=== PATIENT | male | born 1945 | race Caucasian/White ===

== ENCOUNTER 2021-11-21 18:26 | Inpatient (IN) | payer OTHER, MEDICAID ==
[~2021-11-21] VITALS: Ht 162.6 cm; Wt 67.6 kg
[2021-11-21 18:34] VITALS: BP_SYST 125
[2021-11-21] MEDS ORDERED: KETAMINE 30 MG/3 ML SYRINGE IVP ONE (19:00)
[2021-11-21] MEDS ORDERED: iohexoL 350 mgI/mL, 100 ML INFUS..BTL IV ONE (19:09)
[2021-11-21 19:14] LABS: BASOPHILS % (AUTO) 0.5 % (0.0-2.0); EOSINOPHILS % (AUTO) 0.1 % (0.0-4.0); HEMATOCRIT 34.5 % (36-54); HEMOGLOBIN 12.2 g/dL (14.0-18.0); LYMPHOCYTES # (AUTO) 0.8 K/uL (1.0-5.5); LYMPHOCYTES % (AUTO) 9.7 % (20.5-51.5); MEAN CORPUSCULAR HEMOGLOBIN 32 pg (27-31); MEAN CORPUSCULAR HGB CONC 35 % (32-36); MEAN CORPUSCULAR VOLUME 91 fL (79.0-98.0); MONOCYTES % (AUTO) 23.8 % (1.7-9.3); NEUTROPHILS # (AUTO) 5.5 K/uL (1.8-7.7); NEUTROPHILS % (AUTO) 65.9 % (40.0-70.0); PLATELET COUNT (AUTO) 229 K/uL (130-430); WHITE BLOOD COUNT (AUTO) 8.3 K/uL (4.8-10.8)
[2021-11-21 19:18] LABS: ANION GAP 9 (5-15); CHLORIDE 98 mmol/L (98-107); CREATININE 2.39 mg/dL (0.55-1.30); GLUCOSE 224 mg/dL (70-99); POTASSIUM 4.5 mmol/L (3.5-5.1); SODIUM SERUM 132 mmol/L (136-145); UREA NITROGEN, BLOOD 39 mg/dL (8-21)
[2021-11-21 19:19] LABS: PROTHROMBIN TIME 10.1 SECS (9.5-12.5)
[2021-11-21 19:23] LABS: CALCIUM 8.3 mg/dL (8.4-11.0)
[2021-11-21 19:28] LABS: ALANINE AMINOTRANSFERASE 41 U/L (12-78); ASPARTATE AMINOTRANSFERASE 55 U/L (10-37); TOTAL BILIRUBIN 0.3 mg/dL (0.0-1.0)
[2021-11-21] MEDS ORDERED: ONDANSETRON HCL 4 MG/2 ML VIAL IVP PRN (22:45)
[2021-11-21] MEDS ORDERED: TAMS-11 PO (23:47)
[2021-11-21] MEDS ORDERED: NEU300 PO (23:48)
[2021-11-21] MEDS ORDERED: NOR10 PO (23:48)
[2021-11-21] MEDS ORDERED: LEVO250T43 PO (23:49)
[2021-11-21] MEDS ORDERED: LISI20TA30 PO (23:52)
[2021-11-21] MEDS ORDERED: [UNRECOGNIZED DRUG - OTHER] OP (23:54)
[2021-11-21] MEDS ORDERED: OFLO5DRO6 EACH EYE (23:56)
[2021-11-22 06:23] LABS: BASOPHILS % (AUTO) 0.4 % (0.0-2.0); EOSINOPHILS % (AUTO) 0.1 % (0.0-4.0); HEMATOCRIT 35.5 % (36-54); HEMOGLOBIN 12.7 g/dL (14.0-18.0); LYMPHOCYTES # (AUTO) 0.8 K/uL (1.0-5.5); LYMPHOCYTES % (AUTO) 13.5 % (20.5-51.5); MEAN CORPUSCULAR HEMOGLOBIN 32 pg (27-31); MEAN CORPUSCULAR HGB CONC 36 % (32-36); MEAN CORPUSCULAR VOLUME 90 fL (79.0-98.0); MONOCYTES # (AUTO) 1.2 K/uL (0.0-1.0); MONOCYTES % (AUTO) 19.7 % (1.7-9.3); NEUTROPHILS # (AUTO) 4.1 K/uL (1.8-7.7); NEUTROPHILS % (AUTO) 66.3 % (40.0-70.0); PLATELET COUNT (AUTO) 205 K/uL (130-430); RED BLOOD CELL COUNT(AUTO) 3.92 MIL/uL (4.2-6.2); RED CELL DISTRIBUTION WIDTH 14.1 % (9.0-15.0); WHITE BLOOD COUNT (AUTO) 6.1 K/uL (4.8-10.8)
[2021-11-22 06:56] LABS: ALANINE AMINOTRANSFERASE 43 U/L (12-78); ANION GAP 11 (5-15); ASPARTATE AMINOTRANSFERASE 53 U/L (10-37); CALCIUM 7.6 mg/dL (8.4-11.0); CHLORIDE 101 mmol/L (98-107); CREATININE 2.03 mg/dL (0.55-1.30); GLUCOSE 145 mg/dL (70-99); POTASSIUM 4.1 mmol/L (3.5-5.1); SODIUM SERUM 135 mmol/L (136-145); THYROID STIMULATING HORMONE 0.43 uIu/mL (0.36-3.74); TOTAL BILIRUBIN 0.4 mg/dL (0.0-1.0); UREA NITROGEN, BLOOD 38 mg/dL (8-21)
[2021-11-22 08:05] VITALS: BP_SYST 150
[2021-11-22 08:49] LABS: CHOLESTEROL 112 mg/dL (<200); HDL CHOLESTEROL 31 mg/dL (>45); LDL CHOLESTEROL 69 mg/dL (<100); TRIGLYCERIDES 77 mg/dL (30-150)
[2021-11-22] MEDS: cefTRIAXone 1 GM IVPB PREMIX 50 ML IV SCH (09:15)
[2021-11-22 12:15] VITALS: BP_SYST 142
[2021-11-22 16:15] VITALS: BP_SYST 181
[2021-11-22] MEDS ORDERED: DORZOLAMIDE 2% OPHTHALMIC SOLN 5ML OP ONE (18:15)
[2021-11-22] MEDS ORDERED: OFLOXACIN 0.3% OPHTHALMIC DROPS 5 ML EACH EYE ONE (18:15)
[2021-11-22] MEDS: TAMSULOSIN HCL 0.4 MG CAP PO ONE ×2 (18:56→19:10)
[2021-11-22] MEDS: GABAPENTIN 300 MG CAPSULE PO ONE ×2 (18:56→19:10)
[2021-11-22] MEDS: amLODIPine BESYLATE 10 MG TABLET PO ONE ×2 (18:56→19:10)
[2021-11-22 20:40] VITALS: BP_SYST 159
[2021-11-22] MEDS: OFLOXACIN 0.3% OPHTHALMIC DROPS 5 ML EACH EYE SCH (21:00)
[2021-11-22] MEDS ORDERED: hydrALAZINE HCL 20 MG/ML VIAL IVP PRN (21:45)
[2021-11-23 03:00] VITALS: BP_SYST 154
[2021-11-23 07:06] LABS: FOLATE (FOLIC ACID) 14.1 ng/mL (>3.0)
[2021-11-23 08:00] VITALS: BP_SYST 146
[2021-11-23] MEDS: TAMSULOSIN HCL 0.4 MG CAP PO SCH (08:46)
[2021-11-23] MEDS: DORZOLAMIDE 2% OPHTHALMIC SOLN 5ML OP SCH (08:47)
[2021-11-23] MEDS: amLODIPine BESYLATE 10 MG TABLET PO SCH (08:47)
[2021-11-23] MEDS: cefTRIAXone 1 GM IVPB PREMIX 50 ML IV SCH (08:47)
[2021-11-23] MEDS: OFLOXACIN 0.3% OPHTHALMIC DROPS 5 ML EACH EYE SCH ×4 (08:53→22:09)
[2021-11-23] MEDS ORDERED: GABAPENTIN 300 MG CAPSULE PO SCH (09:00)
[2021-11-23] MEDS: NACL 0.9% 1,000 ML IV SCH (11:39)
[2021-11-23 11:40] VITALS: BP_SYST 151
[2021-11-23 15:41] VITALS: BP_SYST 104
[2021-11-23 20:33] VITALS: BP_SYST 129
[2021-11-24 00:31] VITALS: BP_SYST 123
[2021-11-24 06:23] LABS: BASOPHILS % (AUTO) 0.4 % (0.0-2.0); EOSINOPHILS % (AUTO) 0.4 % (0.0-4.0); HEMATOCRIT 35.1 % (36-54); HEMOGLOBIN 12.6 g/dL (14.0-18.0); LYMPHOCYTES # (AUTO) 0.9 K/uL (1.0-5.5); LYMPHOCYTES % (AUTO) 17.4 % (20.5-51.5); MEAN CORPUSCULAR HEMOGLOBIN 32 pg (27-31); MEAN CORPUSCULAR HGB CONC 36 % (32-36); MEAN CORPUSCULAR VOLUME 89 fL (79.0-98.0); MONOCYTES # (AUTO) 0.5 K/uL (0.0-1.0); NEUTROPHILS # (AUTO) 3.8 K/uL (1.8-7.7); NEUTROPHILS % (AUTO) 72.8 % (40.0-70.0); PLATELET COUNT (AUTO) 192 K/uL (130-430); RED BLOOD CELL COUNT(AUTO) 3.95 MIL/uL (4.2-6.2); RED CELL DISTRIBUTION WIDTH 13.9 % (9.0-15.0); WHITE BLOOD COUNT (AUTO) 5.1 K/uL (4.8-10.8)
[2021-11-24 06:43] LABS: ALANINE AMINOTRANSFERASE 51 U/L (12-78); ALBUMIN 2.8 g/dL (3.4-4.8); ANION GAP 6 (5-15); ASPARTATE AMINOTRANSFERASE 56 U/L (10-37); CALCIUM 8.2 mg/dL (8.4-11.0); CHLORIDE 100 mmol/L (98-107); CREATININE 1.53 mg/dL (0.55-1.30); GLUCOSE 187 mg/dL (70-99); POTASSIUM 4.1 mmol/L (3.5-5.1); SODIUM SERUM 134 mmol/L (136-145); TOTAL BILIRUBIN 0.3 mg/dL (0.0-1.0); UREA NITROGEN, BLOOD 32 mg/dL (8-21)
[2021-11-24 08:00] VITALS: BP_SYST 113
[2021-11-24] MEDS: TAMSULOSIN HCL 0.4 MG CAP PO SCH (08:29)
[2021-11-24] MEDS: amLODIPine BESYLATE 10 MG TABLET PO SCH (08:29)
[2021-11-24] MEDS: cefTRIAXone 1 GM IVPB PREMIX 50 ML IV SCH (08:30)
[2021-11-24] MEDS: OFLOXACIN 0.3% OPHTHALMIC DROPS 5 ML EACH EYE SCH ×4 (08:30→21:50)
[2021-11-24] MEDS: DORZOLAMIDE 2% OPHTHALMIC SOLN 5ML OP SCH (08:30)
[2021-11-24] MEDS: NACL 0.9% 1,000 ML IV SCH (08:30)
[2021-11-24] MEDS ORDERED: ENOXAPARIN SODIUM 40 MG/0.4 ML SYRINGE SUBCUT ONE (11:45)
[2021-11-24] MEDS ORDERED: CHOLECALCIFEROL (VITAMIN D3) 5,000 UNIT TABLET PO ONE (11:45)
[2021-11-24 12:25] VITALS: BP_SYST 125
[2021-11-24] MEDS ORDERED: PANTOPRAZOLE SODIUM 40 MG TAB PO ONE (14:15)
[2021-11-24] MEDS ORDERED: ASPIRIN 81 MG TABLET(ECOTRIN) PO ONE (14:15)
[2021-11-24 16:23] VITALS: BP_SYST 125
[2021-11-24 20:03] VITALS: BP_SYST 157
[2021-11-24] MEDS: ASCORBIC ACID 500 MG TABLET PO SCH (21:50)
[2021-11-25] VITALS: BP_SYST 121
[2021-11-25 06:01] LABS: BASOPHILS % (AUTO) 0.3 % (0.0-2.0); EOSINOPHILS % (AUTO) 0.2 % (0.0-4.0); HEMATOCRIT 34.7 % (36-54); HEMOGLOBIN 12.5 g/dL (14.0-18.0); LYMPHOCYTES # (AUTO) 0.7 K/uL (1.0-5.5); LYMPHOCYTES % (AUTO) 16.4 % (20.5-51.5); MEAN CORPUSCULAR HEMOGLOBIN 32 pg (27-31); MEAN CORPUSCULAR HGB CONC 36 % (32-36); MEAN CORPUSCULAR VOLUME 88 fL (79.0-98.0); MONOCYTES # (AUTO) 0.4 K/uL (0.0-1.0); MONOCYTES % (AUTO) 9.1 % (1.7-9.3); NEUTROPHILS # (AUTO) 3.1 K/uL (1.8-7.7); PLATELET COUNT (AUTO) 178 K/uL (130-430); RED BLOOD CELL COUNT(AUTO) 3.94 MIL/uL (4.2-6.2); RED CELL DISTRIBUTION WIDTH 13.9 % (9.0-15.0); WHITE BLOOD COUNT (AUTO) 4.2 K/uL (4.8-10.8)
[2021-11-25 06:25] LABS: ANION GAP 6 (5-15); CALCIUM 8.4 mg/dL (8.4-11.0); CHLORIDE 99 mmol/L (98-107); CREATININE 1.34 mg/dL (0.55-1.30); GLUCOSE 184 mg/dL (70-99); POTASSIUM 4.6 mmol/L (3.5-5.1); SODIUM SERUM 132 mmol/L (136-145); UREA NITROGEN, BLOOD 23 mg/dL (8-21)
[2021-11-25 08:00] VITALS: BP_SYST 122
[2021-11-25] MEDS: cefTRIAXone 1 GM IVPB PREMIX 50 ML IV SCH (08:00)
[2021-11-25] MEDS: amLODIPine BESYLATE 10 MG TABLET PO SCH (09:12)
[2021-11-25] MEDS: ASPIRIN 81 MG TABLET(ECOTRIN) PO SCH (09:12)
[2021-11-25] MEDS: TAMSULOSIN HCL 0.4 MG CAP PO SCH (09:12)
[2021-11-25] MEDS: ENOXAPARIN SODIUM 40 MG/0.4 ML SYRINGE SUBCUT SCH (09:13)
[2021-11-25] MEDS: PANTOPRAZOLE SODIUM 40 MG TAB PO SCH (09:13)
[2021-11-25] MEDS: ASCORBIC ACID 500 MG TABLET PO SCH ×2 (09:13→21:41)
[2021-11-25] MEDS: CHOLECALCIFEROL (VITAMIN D3) 5,000 UNIT TABLET PO SCH (09:13)
[2021-11-25] MEDS: DORZOLAMIDE 2% OPHTHALMIC SOLN 5ML OP SCH (09:14)
[2021-11-25] MEDS: OFLOXACIN 0.3% OPHTHALMIC DROPS 5 ML EACH EYE SCH ×4 (09:14→21:00)
[2021-11-25 12:53] VITALS: BP_SYST 105
[2021-11-25 16:00] VITALS: BP_SYST 117
[2021-11-25 20:11] VITALS: BP_SYST 143
[2021-11-26 00:27] VITALS: BP_SYST 140
[2021-11-26 06:34] LABS: BASOPHILS % (AUTO) 0.2 % (0.0-2.0); EOSINOPHILS % (AUTO) 0.1 % (0.0-4.0); HEMATOCRIT 36.3 % (36-54); HEMOGLOBIN 12.9 g/dL (14.0-18.0); LYMPHOCYTES # (AUTO) 0.7 K/uL (1.0-5.5); LYMPHOCYTES % (AUTO) 10.3 % (20.5-51.5); MEAN CORPUSCULAR HEMOGLOBIN 32 pg (27-31); MEAN CORPUSCULAR HGB CONC 36 % (32-36); MEAN CORPUSCULAR VOLUME 89 fL (79.0-98.0); MONOCYTES # (AUTO) 0.6 K/uL (0.0-1.0); MONOCYTES % (AUTO) 8.9 % (1.7-9.3); NEUTROPHILS # (AUTO) 5.3 K/uL (1.8-7.7); NEUTROPHILS % (AUTO) 80.5 % (40.0-70.0); PLATELET COUNT (AUTO) 167 K/uL (130-430); WHITE BLOOD COUNT (AUTO) 6.6 K/uL (4.8-10.8)
[2021-11-26 06:51] LABS: ALANINE AMINOTRANSFERASE 40 U/L (12-78); ANION GAP 6 (5-15); ASPARTATE AMINOTRANSFERASE 54 U/L (10-37); CALCIUM 8.6 mg/dL (8.4-11.0); CHLORIDE 98 mmol/L (98-107); CREATININE 1.42 mg/dL (0.55-1.30); GLUCOSE 209 mg/dL (70-99); POTASSIUM 4.2 mmol/L (3.5-5.1); SODIUM SERUM 132 mmol/L (136-145); TOTAL BILIRUBIN 0.5 mg/dL (0.0-1.0); UREA NITROGEN, BLOOD 23 mg/dL (8-21)
[2021-11-26 07:00] VITALS: BP_SYST 154
[2021-11-26 08:00] VITALS: BP_SYST 154
[2021-11-26] MEDS: ENOXAPARIN SODIUM 40 MG/0.4 ML SYRINGE SUBCUT SCH (09:14)
[2021-11-26] MEDS: ASPIRIN 81 MG TABLET(ECOTRIN) PO SCH (09:15)
[2021-11-26] MEDS: TAMSULOSIN HCL 0.4 MG CAP PO SCH (09:15)
[2021-11-26] MEDS: PANTOPRAZOLE SODIUM 40 MG TAB PO SCH (09:15)
[2021-11-26] MEDS: ASCORBIC ACID 500 MG TABLET PO SCH ×2 (09:15→21:31)
[2021-11-26] MEDS: amLODIPine BESYLATE 10 MG TABLET PO SCH (09:16)
[2021-11-26] MEDS: CHOLECALCIFEROL (VITAMIN D3) 5,000 UNIT TABLET PO SCH (09:16)
[2021-11-26] MEDS: DORZOLAMIDE 2% OPHTHALMIC SOLN 5ML OP SCH (09:16)
[2021-11-26] MEDS: OFLOXACIN 0.3% OPHTHALMIC DROPS 5 ML EACH EYE SCH ×4 (09:17→21:31)
[2021-11-26 12:00] VITALS: BP_SYST 111
[2021-11-26] MEDS: NACL 0.9% 1,000 ML IV SCH (14:41)
[2021-11-26 16:12] VITALS: BP_SYST 116
[2021-11-26 20:07] VITALS: BP_SYST 114
[2021-11-27 00:57] VITALS: BP_SYST 137
[2021-11-27 07:00] VITALS: BP_SYST 156
[2021-11-27 08:00] VITALS: BP_SYST 156
[2021-11-27] MEDS: ASCORBIC ACID 500 MG TABLET PO SCH ×2 (08:50→22:18)
[2021-11-27] MEDS: PANTOPRAZOLE SODIUM 40 MG TAB PO SCH (08:51)
[2021-11-27] MEDS: TAMSULOSIN HCL 0.4 MG CAP PO SCH (08:51)
[2021-11-27] MEDS: ASPIRIN 81 MG TABLET(ECOTRIN) PO SCH (08:51)
[2021-11-27] MEDS: ENOXAPARIN SODIUM 40 MG/0.4 ML SYRINGE SUBCUT SCH (08:52)
[2021-11-27] MEDS: CHOLECALCIFEROL (VITAMIN D3) 5,000 UNIT TABLET PO SCH (08:52)
[2021-11-27] MEDS: amLODIPine BESYLATE 10 MG TABLET PO SCH (08:52)
[2021-11-27] MEDS: DORZOLAMIDE 2% OPHTHALMIC SOLN 5ML OP SCH (08:53)
[2021-11-27] MEDS: OFLOXACIN 0.3% OPHTHALMIC DROPS 5 ML EACH EYE SCH ×4 (08:53→22:16)
[2021-11-27] MEDS: NACL 0.9% 1,000 ML IV SCH (09:00)
[2021-11-27 09:26] LABS: ALANINE AMINOTRANSFERASE 39 U/L (12-78); ALBUMIN 3.2 g/dL (3.4-4.8); ANION GAP 8 (5-15); ASPARTATE AMINOTRANSFERASE 50 U/L (10-37); CALCIUM 8.8 mg/dL (8.4-11.0); CHLORIDE 99 mmol/L (98-107); CREATININE 1.25 mg/dL (0.55-1.30); GLUCOSE 207 mg/dL (70-99); POTASSIUM 4.3 mmol/L (3.5-5.1); SODIUM SERUM 132 mmol/L (136-145); TOTAL BILIRUBIN 0.4 mg/dL (0.0-1.0); UREA NITROGEN, BLOOD 21 mg/dL (8-21)
[2021-11-27 12:00] VITALS: BP_SYST 140
[2021-11-27 16:00] VITALS: BP_SYST 131
[2021-11-27 19:57] VITALS: BP_SYST 148
[2021-11-28 00:52] VITALS: BP_SYST 108
[2021-11-28 04:00] VITALS: BP_SYST 115
[2021-11-28 08:00] VITALS: BP_SYST 117
[2021-11-28] MEDS: ASCORBIC ACID 500 MG TABLET PO SCH ×2 (10:56→21:16)
[2021-11-28] MEDS: ASPIRIN 81 MG TABLET(ECOTRIN) PO SCH (10:56)
[2021-11-28] MEDS: CHOLECALCIFEROL (VITAMIN D3) 5,000 UNIT TABLET PO SCH (10:56)
[2021-11-28] MEDS: amLODIPine BESYLATE 10 MG TABLET PO SCH (10:56)
[2021-11-28] MEDS: TAMSULOSIN HCL 0.4 MG CAP PO SCH (10:56)
[2021-11-28] MEDS: PANTOPRAZOLE SODIUM 40 MG TAB PO SCH (10:56)
[2021-11-28] MEDS: ENOXAPARIN SODIUM 40 MG/0.4 ML SYRINGE SUBCUT SCH (10:57)
[2021-11-28] MEDS: DORZOLAMIDE 2% OPHTHALMIC SOLN 5ML OP SCH (10:58)
[2021-11-28] MEDS: OFLOXACIN 0.3% OPHTHALMIC DROPS 5 ML EACH EYE SCH ×4 (10:59→21:00)
[2021-11-28 12:00] VITALS: BP_SYST 112
[2021-11-28 17:28] VITALS: BP_SYST 115
[2021-11-28 20:00] VITALS: BP_SYST 155
[2021-11-29] VITALS: BP_SYST 145
[2021-11-29 08:00] VITALS: BP_SYST 106
[2021-11-29] MEDS: PANTOPRAZOLE SODIUM 40 MG TAB PO SCH (09:06)
[2021-11-29] MEDS: DORZOLAMIDE 2% OPHTHALMIC SOLN 5ML OP SCH (09:07)
[2021-11-29] MEDS: CHOLECALCIFEROL (VITAMIN D3) 5,000 UNIT TABLET PO SCH (09:07)
[2021-11-29] MEDS: TAMSULOSIN HCL 0.4 MG CAP PO SCH (09:07)
[2021-11-29] MEDS: amLODIPine BESYLATE 10 MG TABLET PO SCH (09:07)
[2021-11-29] MEDS: ASPIRIN 81 MG TABLET(ECOTRIN) PO SCH (09:07)
[2021-11-29] MEDS: OFLOXACIN 0.3% OPHTHALMIC DROPS 5 ML EACH EYE SCH ×2 (09:08→13:00)
[2021-11-29] MEDS: ENOXAPARIN SODIUM 40 MG/0.4 ML SYRINGE SUBCUT SCH (09:09)
[2021-11-29] MEDS: ASCORBIC ACID 500 MG TABLET PO SCH (10:24)
[2021-11-29 16:18] VITALS: BP_SYST 143
[2021-11-29 20:00] VITALS: BP_SYST 112
== END 2021-11-29 20:30 | DRG 177 ==
LOC: SED 18:26 → STU 22:46 → SMU 11-25 23:37 → STU 11-26 → SMU 11-26 00:02
PROVIDERS: ADMIT Family Medicine; ATTEND Family Medicine
DX: U07.1 COVID-19 (principal); G93.41 Metabolic encephalopathy; N17.0 Acute kidney failure with tubular necrosis; I69.354 Hemiplegia and hemiparesis following cerebral infarction affecting left non-dominant side; E87.1 Hypo-osmolality and hyponatremia; E66.9 Obesity, unspecified; F01.50 Vascular dementia, unspecified severity, without behavioral disturbance, psychotic disturbance, mood disturbance, and anxiety; G62.9 Polyneuropathy, unspecified; N40.0 Benign prostatic hyperplasia without lower urinary tract symptoms; I12.9 Hypertensive chronic kidney disease with stage 1 through stage 4 chronic kidney disease, or unspecified chronic kidney disease; D64.9 Anemia, unspecified; N18.9 Chronic kidney disease, unspecified
CPT/HCPCS: 36415; 70450-TC; 71045; 76376; 76770; 80048; 80053; 80061; 82140; 82607; 82728; 82746; 83605; 84443; 84484; 85025; 85379; 85610-TC; 85730-TC; 86140; 86886; 86900; 86901; 87040; 92610-GN; 93005; 96374; 97110-GP; 97116-GP; 97530-GP; 99285; G0378; J0696; J1650; Q9967